=== PATIENT | male | born 1965 | race Caucasian/White ===

== ENCOUNTER 2020-06-14 11:01 | Emergency (ER) | payer OTHER ==
[~2020-06-14] VITALS: Ht 172.7 cm; Wt 68.0 kg
[~2020-06-14 11:01] MED LIST: CIPRO500 MG PO; METRONIDAZOLE500 MG PO
[2020-06-14] MEDS ORDERED: ZESTRIL20 MG PO (11:20)
[2020-06-14] MEDS ORDERED: HYDROCHLOROTHIA25 MG PO (11:20)
[2020-06-14] MEDS ORDERED: NABUMETONE500 MG PO (15:41)
[2020-06-14] MEDS ORDERED: CYCLOBENZAPRINE10 MG PO (15:41)
== END 2020-06-14 18:11 | disposition home or self-care (01) ==
LOC: ER 11:01
DX: R42 Dizziness and giddiness (principal); M54.2 Cervicalgia; I95.89 Other hypotension

== ENCOUNTER 2020-12-07 07:20 | Emergency (ER) | payer OTHER ==
[~2020-12-07] VITALS: Ht 172.7 cm; Wt 65.8 kg
[~2020-12-07 07:20] MED LIST changes: +CYCLOBENZAPRINE10 MG PO; +HYDROCHLOROTHIA25 MG PO; +NABUMETONE500 MG PO; +ZESTRIL20 MG PO
[2020-12-07] MEDS ORDERED: PAXIL40 MG PO (07:30)
[2020-12-07] MEDS ORDERED: NEURIN (07:31)
[2020-12-07] MEDS ORDERED: CYCLOBENZAPRINE10 MG PO (10:57)
[2020-12-07] MEDS ORDERED: KETO10TA2 PO (10:57)
== END 2020-12-07 11:07 | disposition home or self-care (01) ==
LOC: ER 07:20
DX: M25.561 Pain in right knee (principal); M25.551 Pain in right hip

== ENCOUNTER → 2021-03-14 05:56 | Outpatient (CLI) | payer OTHER ==
[~2021-03-14 05:56] MED LIST changes: +KETO10TA2 PO; +NEURIN; +PAXIL40 MG PO
== END | disposition home or self-care (01) ==
LOC: LAB 05:56
PROVIDERS: ATTEND Emergency Medicine Pediatric Emergency Medicine
DX: Z20.828 Contact with and (suspected) exposure to other viral communicable diseases (principal)

== ENCOUNTER 2021-05-03 14:01 | Emergency (ER) | payer OTHER ==
[~2021-05-03] VITALS: Ht 172.7 cm; Wt 68.0 kg
[2021-05-03] MEDS ORDERED: HYDROCHLOROTHIA25 MG PO (14:12)
[2021-05-03] MEDS ORDERED: ENALAPRIL MALEA25 GM MC (14:12)
== END 2021-05-03 16:30 | disposition home or self-care (01) ==
LOC: ER 14:01
DX: S76.011A Strain of muscle, fascia and tendon of right hip, initial encounter (principal); M25.561 Pain in right knee; X58.XXXA Exposure to other specified factors, initial encounter; Y92.89 Other specified places as the place of occurrence of the external cause

== ENCOUNTER 2021-05-19 08:06 | Emergency (ER) | payer OTHER ==
[~2021-05-19] VITALS: Ht 172.7 cm; Wt 68.0 kg
[~2021-05-19 08:06] MED LIST changes: +ENALAPRIL MALEA25 GM MC
[2021-05-19] MEDS ORDERED: KETO10TA2 PO (11:29)
[2021-05-19] MEDS ORDERED: NORFLEX100MG PO (11:29)
== END 2021-05-19 11:49 | disposition home or self-care (01) ==
LOC: ER 08:06
DX: M54.59 Other low back pain (principal)

== ENCOUNTER 2021-05-19 09:15 | Outpatient (CLI) | payer OTHER ==
[2021-05-19] MEDS ORDERED: KETO10TA2 PO (11:29)
[2021-05-19] MEDS ORDERED: NORFLEX100MG PO (11:29)
== END 2021-05-19 09:30 | disposition home or self-care (01) ==
LOC: PPH VACUNA 09:15
PROVIDERS: ATTEND Emergency Medicine Pediatric Emergency Medicine
DX: Z23 Encounter for immunization (principal)

== ENCOUNTER 2021-06-22 09:00 | Outpatient (CLI) | payer OTHER ==
[~2021-06-22 09:00] MED LIST changes: +NORFLEX100MG PO
[2021-08-24] MEDS ORDERED: IBU800 MG PO (21:02)
[2021-08-24] MEDS ORDERED: CYCLOBENZAPRINE10 MG PO (21:02)
== END 2021-06-22 09:30 | disposition home or self-care (01) ==
LOC: PPH VACUNA 09:00
PROVIDERS: ATTEND Emergency Medicine Pediatric Emergency Medicine
DX: Z23 Encounter for immunization (principal)

== ENCOUNTER → 2021-08-24 | Emergency (ER) | payer OTHER ==
[~2021-08-24] VITALS: Ht 172.7 cm; Wt 65.8 kg
[~2021-08-24] MED LIST changes: +IBU800 MG PO
== END | disposition home or self-care (01) ==
LOC: ER 19:31
DX: M13.88 Other specified arthritis, other site (principal); M79.661 Pain in right lower leg

== ENCOUNTER 2021-12-01 16:55 | Outpatient (CLI) | payer OTHER ==
[2021-12-02] MEDS ORDERED: QUETIAPINE FUM100 MG (01:24)
== END 2021-12-01 18:12 | disposition home or self-care (01) ==
LOC: LAB 16:55
PROVIDERS: ATTEND Preventive Medicine Occupational Medicine
DX: U07.1 COVID-19 (principal)

== ENCOUNTER 2021-12-02 01:05 | Emergency (ER) | payer OTHER ==
[~2021-12-02] VITALS: Ht 172.7 cm; Wt 68.0 kg
[2021-12-02] MEDS ORDERED: QUETIAPINE FUM100 MG (01:24)
== END 2021-12-02 04:43 | disposition home or self-care (01) ==
LOC: ER 01:05
DX: J44.1 Chronic obstructive pulmonary disease with (acute) exacerbation (principal); B34.9 Viral infection, unspecified; Z88.6 Allergy status to analgesic agent; I10 Essential (primary) hypertension

== ENCOUNTER 2021-12-06 12:16 | Emergency (ER) | payer OTHER ==
[~2021-12-06] VITALS: Ht 172.7 cm; Wt 65.8 kg
[~2021-12-06 12:16] MED LIST changes: +QUETIAPINE FUM100 MG
== END 2021-12-06 16:46 | disposition home or self-care (01) ==
LOC: ER 12:16
DX: J40 Bronchitis, not specified as acute or chronic (principal); Z88.8 Allergy status to other drugs, medicaments and biological substances; Z20.822 Contact with and (suspected) exposure to COVID-19

== ENCOUNTER → 2022-03-13 | Emergency (ER) | payer OTHER ==
[~2022-03-13] VITALS: Ht 172.7 cm; Wt 65.8 kg
[~2022-03-13] MED LIST changes: +RELAFEN DS1000 MG PO
== END | disposition home or self-care (01) ==
LOC: ER 18:30
DX: S00.83XA Contusion of other part of head, initial encounter (principal); R55 Syncope and collapse; R42 Dizziness and giddiness; W18.30XA Fall on same level, unspecified, initial encounter; Y93.9 Activity, unspecified; Y92.9 Unspecified place or not applicable; Y99.9 Unspecified external cause status

== ENCOUNTER → 2022-04-23 | Emergency (ER) | payer OTHER ==
[~2022-04-23] VITALS: Ht 172.7 cm; Wt 65.8 kg
[~2022-04-23] MED LIST changes: +NABUMETONE750 MG PO
== END | disposition home or self-care (01) ==
LOC: ER 03:15
DX: M54.40 Lumbago with sciatica, unspecified side (principal); E11.9 Type 2 diabetes mellitus without complications; I10 Essential (primary) hypertension; Z88.8 Allergy status to other drugs, medicaments and biological substances

== ENCOUNTER 2022-04-24 01:13 | Emergency (ER) | payer OTHER ==
[~2022-04-24] VITALS: Ht 172.7 cm; Wt 65.8 kg
[~2022-04-24 01:13] MED LIST changes: -NABUMETONE750 MG PO
[2022-04-24] MEDS ORDERED: NABUMETONE750 MG PO (02:16)
== END 2022-04-24 02:53 | disposition home or self-care (01) ==
LOC: ER 01:13
DX: M79.605 Pain in left leg (principal); I10 Essential (primary) hypertension; Z88.8 Allergy status to other drugs, medicaments and biological substances

== ENCOUNTER 2022-04-26 12:46 | Outpatient (CLI) | payer OTHER ==
[~2022-04-26 12:46] MED LIST changes: +NABUMETONE750 MG PO
== END 2022-04-26 12:51 | disposition home or self-care (01) ==
LOC: PPH VACUNA 12:46
PROVIDERS: ATTEND Emergency Medicine Pediatric Emergency Medicine
DX: Z23 Encounter for immunization (principal)

== ENCOUNTER 2022-04-26 13:12 | Outpatient (CLI) | payer OTHER | END 2022-04-26 13:17 | disposition home or self-care (01) | LOC: PPH VACUNA 13:12 | PROVIDERS: ATTEND Emergency Medicine Pediatric Emergency Medicine | DX: Z23 Encounter for immunization (principal) ==

== ENCOUNTER 2022-05-23 11:34 | Emergency (ER) | payer OTHER ==
[~2022-05-23] VITALS: Ht 172.7 cm; Wt 65.8 kg
== END 2022-05-23 17:20 | disposition home or self-care (01) ==
LOC: ER 11:34
DX: B34.9 Viral infection, unspecified (principal); R19.7 Diarrhea, unspecified; I10 Essential (primary) hypertension; E11.9 Type 2 diabetes mellitus without complications; Z20.822 Contact with and (suspected) exposure to COVID-19; Z88.6 Allergy status to analgesic agent

== ENCOUNTER → 2022-07-07 | Emergency (ER) | payer OTHER ==
[~2022-07-07] VITALS: Ht 170.2 cm; Wt 65.8 kg
== END | disposition home or self-care (01) ==
LOC: ER 21:19
DX: S29.9XXA Unspecified injury of thorax, initial encounter (principal); W19.XXXA Unspecified fall, initial encounter; Y93.9 Activity, unspecified; Y92.9 Unspecified place or not applicable

== ENCOUNTER 2022-09-03 18:21 | Emergency (ER) | payer OTHER ==
[~2022-09-03] VITALS: Ht 172.7 cm; Wt 59.0 kg
[2022-09-03] MEDS ORDERED: NABUMETONE750 MG PO (18:43)
== END 2022-09-03 18:55 | disposition home or self-care (01) ==
LOC: ER 18:21
DX: M54.9 Dorsalgia, unspecified (principal); Z88.8 Allergy status to other drugs, medicaments and biological substances

== ENCOUNTER 2022-09-17 18:33 | Emergency (ER) | payer OTHER ==
[~2022-09-17] VITALS: Ht 172.7 cm; Wt 63.5 kg
== END 2022-09-17 19:05 | disposition home or self-care (01) ==
LOC: ER 18:33
DX: M54.9 Dorsalgia, unspecified (principal); Z88.6 Allergy status to analgesic agent

== ENCOUNTER 2022-10-08 19:28 | Emergency (ER) | payer OTHER ==
[~2022-10-08] VITALS: Ht 172.7 cm; Wt 65.8 kg
[2022-10-08] MEDS ORDERED: PREVACID15 M1 PO (19:41)
[2022-10-08] MEDS ORDERED: SINGULAIR4 M1 PO (19:41)
[2022-10-08] MEDS ORDERED: ZESTRIL20 MG PO (19:42)
== END 2022-10-08 21:34 | disposition home or self-care (01) ==
LOC: ER 19:28
DX: J45.909 Unspecified asthma, uncomplicated (principal); Z88.8 Allergy status to other drugs, medicaments and biological substances

== ENCOUNTER 2022-10-19 13:44 | Outpatient (CLI) | payer OTHER ==
[~2022-10-19 13:44] MED LIST changes: +PREVACID15 M1 PO; +SINGULAIR4 M1 PO
== END 2022-10-19 13:52 | disposition home or self-care (01) ==
LOC: MRI 13:44
DX: M54.59 Other low back pain (principal); M54.40 Lumbago with sciatica, unspecified side
CPT/HCPCS: 72148

== ENCOUNTER 2023-01-25 00:48 | Emergency (ER) | payer OTHER ==
[~2023-01-25] VITALS: Ht 172.7 cm; Wt 65.8 kg
== END 2023-01-25 04:03 | disposition home or self-care (01) ==
LOC: ER 00:48
DX: M54.50 Low back pain, unspecified (principal); Z88.8 Allergy status to other drugs, medicaments and biological substances

== ENCOUNTER 2023-01-31 08:16 | Emergency (ER) | payer OTHER ==
[~2023-01-31] VITALS: Ht 172.7 cm; Wt 63.5 kg
[2023-01-31] MEDS ORDERED: NORFLEX100MG PO (09:11)
[2023-01-31] MEDS ORDERED: KETO10TA2 PO (09:11)
== END 2023-01-31 09:37 | disposition home or self-care (01) ==
LOC: ER 08:16
DX: M54.42 Lumbago with sciatica, left side (principal); Z88.6 Allergy status to analgesic agent

== ENCOUNTER 2024-06-10 10:14 | Emergency (ER) | payer OTHER ==
[~2024-06-10] VITALS: Ht 172.7 cm; Wt 59.0 kg
[2024-06-10] MEDS ORDERED: HORIZANT300 MG (11:04)
[2024-06-10] MEDS ORDERED: NABUMETONE500 MG PO (11:05)
[2024-06-10] MEDS ORDERED: ANTIVERT25 M2 PO (11:05)
[2024-06-10] MEDS ORDERED: ADULT LOW DOSE81 M1 (11:06)
[2024-06-10] MEDS ORDERED: FAMOtidine 10 MG/ML (4ML VIAL) IV STA (11:37)
[2024-06-10] MEDS ORDERED: 0.9 % SODIUM CHLORIDE 1,000 ML IV STA (11:38)
[2024-06-10] MEDS ORDERED: ONDANSETRON HCL 2 MG/ML VIAL IV ONE (11:45)
[2024-06-10 12:08] LABS: HEMOGLOBIN 14.2 g/dL (13-16.00); MEAN CORPUSCULAR HGB CONC 35.1 g/dl (32.0-36.0); PLATELET COUNT 286 K/uL (150-450); RED BLOOD COUNT 4.17 M/uL (4.00-6.00); RED CELL DISTRIBUTION WIDTH 13.9 % (11.5-14.5)
[2024-06-10 12:09] LABS: HEMATOCRIT 40.5 % (39.0-48.0)
[2024-06-10 12:38] LABS: CALCIUM 9.6 mg/dL (8.5-10.1); CREATININE SERUM 0.83 mg/dL (0.70-1.30); GFR 94.83; POTASSIUM 3.66 mEq/L (3.5-5.1)
== END 2024-06-10 15:21 | disposition home or self-care (01) ==
LOC: ER 10:16
PROVIDERS: General Practice
DX: R11.10 Vomiting, unspecified (principal); I10 Essential (primary) hypertension; Z88.6 Allergy status to analgesic agent

== ENCOUNTER 2024-06-12 10:41 | Inpatient (IN) | payer OTHER ==
[~2024-06-12] VITALS: Ht 172.7 cm; Wt 129.7 kg
[~2024-06-12 10:41] MED LIST changes: +ADULT LOW DOSE81 M1; +ANTIVERT25 M2 PO; +HORIZANT300 MG
[2024-06-12] MEDS ORDERED: PEPCID AC10 MG PO (11:04)
[2024-06-12] MEDS ORDERED: 0.9 % SODIUM CHLORIDE 1,000 ML IV STA (11:14)
[2024-06-12] MEDS ORDERED: ONDANSETRON HCL 2 MG/ML VIAL IV STA (11:14)
[2024-06-12 12:18] LABS: HEMATOCRIT 37.5 % (39.0-48.0); HEMOGLOBIN 13.8 g/dL (13-16.00); MEAN CELL VOLUME 95.3 fL (80.0-100.00); MEAN CORPUSCULAR HEMOGLOBIN 35.1 pg (27.00-32.0); MEAN CORPUSCULAR HGB CONC 36.8 g/dl (32.0-36.0); PLATELET COUNT 256 K/uL (150-450); RED BLOOD COUNT 3.94 M/uL (4.00-6.00); RED CELL DISTRIBUTION WIDTH 13.8 % (11.5-14.5)
[2024-06-12 12:29] LABS: CALCIUM 9.3 mg/dL (8.5-10.1); CREATININE SERUM 0.85 mg/dL (0.70-1.30); GFR 92.26; POTASSIUM 3.12 mEq/L (3.5-5.1)
[2024-06-12] MEDS ORDERED: FAMOTIDINE/PF 20 MG in 0.9 % SODIUM CHLORIDE 8 ML IV PUSH STA (14:06)
[2024-06-12 14:45] LABS: URINE APPEARANCE Clear; URINE BILIRRUBIN Negative (NEGATIVE); URINE BLOOD Negative; URINE COLOR Yellow; URINE GLUCOSE Negative (NEGATIVE); URINE KETONE 15 (NEGATIVE); URINE LEUKOCYTE Negative; URINE NITRATE Negative; URINE PROTEIN Trace (NEGATIVE)
[2024-06-12 14:46] LABS: URINE BACTERIA 125.8 uL (0.0-1933); URINE EPITHELIAL CELLS 18.5 uL (0.0-38.8); URINE RBC 16.6 uL (0.0-20.8); URINE WBC 10.6 uL (0.0-23.2)
[2024-06-12 15:09] LABS: URINE CAST 0.15 uL (0.0-1.40)
[2024-06-12 15:10] LABS: URINE MUCUS SCANT
[2024-06-12] MEDS ORDERED: POTASSIUM CHLORIDE/D5-0.9%NACL 1,000 ML IV ONE (16:00)
[2024-06-12] MEDS ORDERED: ONDANSETRON HCL 4 MG in 0.9 % SODIUM CHLORIDE 50 ML IV PRN (20:15)
[2024-06-12] MEDS ORDERED: 0.9 % SODIUM CHLORIDE 1,000 ML IV SCH (20:15)
[2024-06-12] MEDS ORDERED: ACETAMINOPHEN 500 MG GEL..CAP PO PRN (20:15)
[2024-06-12] MEDS ORDERED: POTASSIUM CHLORIDE IN 0.9%NACL 1,000 ML IV ONE (20:15)
[2024-06-12] MEDS ORDERED: SUCRALFATE 1 G TABLET PO SCH (20:18)
[2024-06-12] MEDS ORDERED: FAMOTIDINE/PF 20 MG in 0.9 % SODIUM CHLORIDE 8 ML IV PUSH SCH (20:18)
[2024-06-12 21:34] VITALS: BP 138/93; O2SAT 99
[2024-06-12] MEDS ORDERED: QUETIAPINE FUMARATE 100 MG TABLET PO SCH (23:33)
[2024-06-13 00:41] VITALS: BP 127/82; O2SAT 99
[2024-06-13 04:46] LABS: CALCIUM 8.5 mg/dL (8.5-10.1); CREATININE SERUM 0.72 mg/dL (0.70-1.30); GFR 111.73; MAGNESIUM 1.8 mg/dL (1.8-2.4); POTASSIUM 3.76 mEq/L (3.5-5.1)
[2024-06-13 04:54] LABS: INR 1.1; PARTIAL THROMBOPLASTIN TIME 26.1 SECONDS (22.0-34.0); PROTHROMBIN TIME 11.9 SECONDS (9.0-11.5)
[2024-06-13 08:44] VITALS: BP 115/71; O2SAT 98
[2024-06-13] MEDS ORDERED: LISINOPRIL 20 MG TABLET PO SCH (09:00)
[2024-06-13] MEDS ORDERED: GABAPENTIN 300 MG CAPSULE PO SCH (09:00)
== END 2024-06-13 12:26 | disposition home or self-care (01) | DRG 641 ==
LOC: ER 10:43 → MEDJ 21:23
PROVIDERS: Emergency Medicine; General Practice; ADMIT Internal Medicine; ATTEND Internal Medicine
PROC: BW21ZZZ Computerized Tomography (CT Scan) of Abdomen and Pelvis (ICD-10-PCS; principal; 2024-06-12)
DX: E86.0 Dehydration (principal); E87.6 Hypokalemia; E87.1 Hypo-osmolality and hyponatremia; R11.12 Projectile vomiting; Z20.822 Contact with and (suspected) exposure to COVID-19

== ENCOUNTER 2024-08-28 12:19 | Emergency (ER) | payer OTHER ==
[~2024-08-28] VITALS: Ht 172.7 cm; Wt 59.0 kg
[~2024-08-28 12:19] MED LIST changes: +PEPCID AC10 MG PO
[2024-08-28 15:41] VITALS: BP 122/77; O2SAT 98
[2024-08-28] MEDS ORDERED: FAMOTIDINE/PF 20 MG in 0.9 % SODIUM CHLORIDE 8 ML IV PUSH STA (16:25)
[2024-08-28] MEDS ORDERED: ONDANSETRON HCL 2 MG/ML VIAL IV ONE (16:30)
[2024-08-28] MEDS ORDERED: 0.9 % SODIUM CHLORIDE 1,000 ML IV SCH (16:30)
[2024-08-28] MEDS ORDERED: FAMOTIDINE/PF 20 MG/2 ML VIAL ONE (16:44)
[2024-08-28] MEDS ORDERED: ONDANSETRON HCL 2 MG/ML VIAL ONE (16:44)
[2024-08-28 17:05] LABS: HEMATOCRIT 33.1 % (39.0-48.0); HEMOGLOBIN 11.7 g/dL (13-16.00); MEAN CELL VOLUME 99.3 fL (80.0-100.00); MEAN CORPUSCULAR HGB CONC 35.3 g/dl (32.0-36.0); PLATELET COUNT 355 K/uL (150-450); RED BLOOD COUNT 3.34 M/uL (4.00-6.00); RED CELL DISTRIBUTION WIDTH 14.1 % (11.5-14.5)
[2024-08-28 17:28] LABS: ALBUMIN 3.8 gm/dL (3.4-5.0); BILIRUBIN TOTAL 0.56 mg/dL (0.3-1.2); CALCIUM 8.9 mg/dL (8.5-10.1); CREATININE SERUM 1.14 mg/dL (0.70-1.30); GFR 65.52; GLOBULINA 3.9 G/DL (2.4-3.5); TOTAL PROTEIN 7.7 gm/dL (6.4-8.2)
[2024-08-28 17:31] LABS: POTASSIUM 2.73 mEq/L (3.5-5.1)
[2024-08-28] MEDS ORDERED: POTASSIUM BICARBONATE/CIT AC 25 MEQ TABLET.EFF PO ONE (17:45)
[2024-08-28] MEDS ORDERED: POTASSIUM CHLORIDE IN 0.9%NACL 1,000 ML IV ONE (17:51)
[2024-08-28 17:56] LABS: PH,URINE 6.5 (5.0-8.0); URINE APPEARANCE Clear; URINE BILIRRUBIN Negative (NEGATIVE); URINE BLOOD Negative; URINE COLOR Dark Yellow; URINE GLUCOSE Negative (NEGATIVE); URINE KETONE Negative (NEGATIVE); URINE LEUKOCYTE Negative; URINE NITRATE Positive; URINE PROTEIN Negative (NEGATIVE)
[2024-08-28 18:15] LABS: URINE BACTERIA 1.2 uL (0.0-1933); URINE EPITHELIAL CELLS 1.1 uL (0.0-38.8); URINE WBC 0.1 uL (0.0-23.2)
== END 2024-08-28 19:27 | disposition left against medical advice (07) ==
LOC: ER 12:21
PROVIDERS: General Practice
DX: E86.0 Dehydration (principal); R11.2 Nausea with vomiting, unspecified; E87.6 Hypokalemia; E11.9 Type 2 diabetes mellitus without complications; Z79.84 Long term (current) use of oral hypoglycemic drugs; I10 Essential (primary) hypertension; Z88.8 Allergy status to other drugs, medicaments and biological substances; Z20.822 Contact with and (suspected) exposure to COVID-19

== ENCOUNTER 2024-09-08 08:18 | Outpatient (CLI) | payer OTHER | END 2024-09-08 08:21 | disposition home or self-care (01) | LOC: TOM 08:18 | DX: I67.1 Cerebral aneurysm, nonruptured (principal) | CPT/HCPCS: 70496 ==

== ENCOUNTER 2024-09-30 10:20 | Inpatient (IN) | payer OTHER ==
[~2024-09-30] VITALS: Ht 172.7 cm; Wt 59.0 kg
[2024-09-30] MEDS ORDERED: FAMOtidine 10 MG/ML (4ML VIAL) IV ONE (11:45)
[2024-09-30] MEDS ORDERED: ONDANSETRON HCL 2 MG/ML VIAL IV ONE (11:45)
[2024-09-30] MEDS ORDERED: ONDANSETRON HCL 2 MG/ML VIAL ONE (11:50)
[2024-09-30 12:29] LABS: HEMATOCRIT 31.3 % (39.0-48.0); HEMOGLOBIN 10.9 g/dL (13-16.00); MEAN CELL VOLUME 101.3 fL (80.0-100.00); MEAN CORPUSCULAR HEMOGLOBIN 35.1 pg (27.00-32.0); MEAN CORPUSCULAR HGB CONC 34.7 g/dl (32.0-36.0); PLATELET COUNT 294 K/uL (150-450); RED BLOOD COUNT 3.09 M/uL (4.00-6.00); RED CELL DISTRIBUTION WIDTH 13.9 % (11.5-14.5)
[2024-09-30 12:44] LABS: INR 1.06; PARTIAL THROMBOPLASTIN TIME 25.8 SECONDS (22.0-34.0); PROTHROMBIN TIME 11.5 SECONDS (9.0-11.5)
[2024-09-30 13:04] LABS: ALBUMIN 3.9 gm/dL (3.4-5.0); BILIRUBIN TOTAL 0.87 mg/dL (0.3-1.2); CALCIUM 8.8 mg/dL (8.5-10.1); CREATININE SERUM 0.78 mg/dL (0.70-1.30); GFR 101.53; GLOBULINA 3.5 G/DL (2.4-3.5); POTASSIUM 3.46 mEq/L (3.5-5.1); TOTAL PROTEIN 7.4 gm/dL (6.4-8.2)
[2024-09-30 13:40] LABS: URINE APPEARANCE Clear; URINE BILIRRUBIN Small (NEGATIVE); URINE BLOOD Negative; URINE COLOR Dark Yellow; URINE GLUCOSE Negative (NEGATIVE); URINE KETONE Negative (NEGATIVE); URINE LEUKOCYTE Small; URINE NITRATE Positive; URINE PROTEIN Trace (NEGATIVE)
[2024-09-30 13:46] LABS: URINE EPITHELIAL CELLS 18.9 uL (0.0-38.8); URINE RBC 4.1 uL (0.0-20.8); URINE WBC 56.8 uL (0.0-23.2)
[2024-09-30] MEDS ORDERED: ENALAPRIL MALEATE 20 MG TABLET PO SCH (13:50)
[2024-09-30] MEDS ORDERED: FAMOTIDINE/PF 20 MG in 0.9 % SODIUM CHLORIDE 8 ML IV PUSH SCH (13:50)
[2024-09-30] MEDS ORDERED: POTASSIUM CHLORIDE IN WATER 100 ML IV ONE (14:00)
[2024-09-30] MEDS ORDERED: ONDANSETRON HCL 4 MG in 0.9 % SODIUM CHLORIDE 50 ML IV PRN (14:00)
[2024-09-30] MEDS ORDERED: 0.9 % SODIUM CHLORIDE 1,000 ML IV SCH (14:00)
[2024-09-30] MEDS ORDERED: GABAPENTIN 300 MG CAPSULE PO SCH (14:06)
[2024-09-30] MEDS ORDERED: HYDROCHLOROTHIAZIDE 25 MG TABLET PO SCH (14:07)
[2024-09-30] MEDS ORDERED: LOSARTAN POTASSIUM 25 MG TABLET PO SCH (14:07)
[2024-09-30 14:11] LABS: URINE CAST 0.14 uL (0.0-1.40)
[2024-09-30] MEDS ORDERED: CEFTRIAXONE SODIUM 2,000 MG in 0.9 % SODIUM CHLORIDE 100 ML IV SCH (14:19)
[2024-09-30] MEDS ORDERED: ACETAMINOPHEN 325 MG TABLET PO PRN (14:30)
[2024-09-30] MEDS ORDERED: CEFTRIAXONE SODIUM 2,000 MG VIAL ONE (14:34)
[2024-09-30] MEDS ORDERED: FAMOTIDINE/PF 20 MG/2 ML VIAL ONE (14:34)
[2024-09-30 14:48] VITALS: BP 124/69
[2024-09-30] MEDS ORDERED: POTASSIUM CHLORIDE IN WATER 40 MEQ/100 ML PIGGYBAG IV ONE (15:04)
[2024-09-30 15:27] VITALS: BP 119/77; O2SAT 100
[2024-09-30] MEDS ORDERED: ACETAMINOPHEN 325 MG TABLET PO ONE (15:37)
[2024-09-30 17:59] VITALS: BP 119/80; O2SAT 98
[2024-09-30] MEDS ORDERED: ACETAMINOPHEN 500 MG GEL..CAP PO PRN (20:00)
[2024-10-01 01:26] VITALS: BP 106/65
[2024-10-01 05:03] LABS: ALBUMIN 3.5 gm/dL (3.4-5.0); BILIRUBIN TOTAL 0.6 mg/dL (0.3-1.2); CALCIUM 8.9 mg/dL (8.5-10.1); GFR 89.51; GLOBULINA 2.8 G/DL (2.4-3.5); POTASSIUM 3.97 mEq/L (3.5-5.1); TOTAL PROTEIN 6.3 gm/dL (6.4-8.2)
[2024-10-01 05:20] LABS: CREATININE SERUM 0.87 mg/dL (0.70-1.30)
[2024-10-01 09:32] VITALS: BP 108/64; O2SAT 95
== END 2024-10-01 10:16 | disposition home or self-care (01) | DRG 641 ==
LOC: ER 10:23 → SEC-K 14:26 → MEDI 15:10
PROVIDERS: General Practice; ADMIT Student in an Organized Health Care Education/Training Program; ATTEND Student in an Organized Health Care Education/Training Program
PROC: BR20ZZZ Computerized Tomography (CT Scan) of Cervical Spine (ICD-10-PCS; principal; 2024-09-30)
PROC: BW28ZZZ Computerized Tomography (CT Scan) of Head (ICD-10-PCS; 2024-09-30)
PROC: BW21ZZZ Computerized Tomography (CT Scan) of Abdomen and Pelvis (ICD-10-PCS; 2024-09-30)
DX: E86.0 Dehydration (principal); E87.6 Hypokalemia; E87.1 Hypo-osmolality and hyponatremia; R11.2 Nausea with vomiting, unspecified; R53.1 Weakness; R41.82 Altered mental status, unspecified

== ENCOUNTER 2024-12-29 21:45 | Emergency (ER) | payer OTHER ==
[~2024-12-29] VITALS: Ht 172.7 cm; Wt 63.5 kg
[2024-12-29] MEDS ORDERED: GENVOYA TABLET1 EACH PO (21:53)
[2024-12-29] MEDS ORDERED: QUETIAPINE FUM400 M1 PO (21:54)
[2024-12-29] MEDS ORDERED: MEDI-MECLIZINE25 MG PO (21:54)
[2024-12-29] MEDS ORDERED: DIALYVITE TABL1 EACH PO (21:55)
[2024-12-29] MEDS ORDERED: PROAIR RESPICL90 MCG IH (21:56)
[2024-12-29] MEDS ORDERED: AZOR 5-20 MG T1 EACH PO (21:56)
[2024-12-29] MEDS ORDERED: EZALLOR SPRINKL10 MG PO (21:56)
[2024-12-30 00:08] LABS: BASO % 0.4 % (0.1-1.2); EOS # 0.43 (0.04-0.54); EOS % 5.4 % (0.7-7.0); HEMATOCRIT 27.9 % (40.1-51.0); HEMOGLOBIN 9.6 g/dL (13.7-17.5); LYMPH # 3.08 (1.18-3.74); LYMPH % 38.8 % (19.3-53.1); MEAN CORPUSCULAR HEMOGLOBIN 35.3 pg (25.6-32.2); MONO # 0.51 (0.24-0.82); MONO % 6.4 % (4.7-12.5); NEUT # 3.86 (1.56-6.13); NEUT % 48.6 % (34.0-71.1); PLATELET COUNT 273 K/uL (163-369); RED BLOOD COUNT 2.72 M/uL (4.63-6.08); RED CELL DISTRIBUTION WIDTH 12.6 % (11.6-14.4)
[2024-12-30 00:30] LABS: ALBUMIN 3.9 gm/dL (3.4-5.0); BILIRUBIN TOTAL 0.31 mg/dL (0.3-1.2); CALCIUM 8.9 mg/dL (8.5-10.1); CREATININE SERUM 1.7 mg/dL (0.70-1.30); GFR 41.32; GLOBULINA 3.9 G/DL (2.4-3.5); POTASSIUM 4.48 mEq/L (3.5-5.1); TOTAL PROTEIN 7.8 gm/dL (6.4-8.2)
[2024-12-30 01:08] LABS: PH,URINE 5.5 (5.0-8.0); URINE APPEARANCE Clear; URINE BILIRRUBIN Negative (NEGATIVE); URINE BLOOD Negative; URINE COLOR Orange; URINE GLUCOSE Negative (NEGATIVE); URINE KETONE Negative (NEGATIVE); URINE LEUKOCYTE Trace; URINE NITRATE Positive; URINE PROTEIN Trace (NEGATIVE)
[2024-12-30 01:12] LABS: URINE BACTERIA 72.1 uL (0.0-1933); URINE CAST 2.79 uL (0.0-1.40); URINE EPITHELIAL CELLS 12.1 uL (0.0-38.8); URINE RBC 3.2 uL (0.0-20.8); URINE WBC 2.8 uL (0.0-23.2)
== END 2024-12-30 02:05 | disposition home or self-care (01) ==
LOC: ER 21:45
PROVIDERS: Preventive Medicine Public Health & General Preventive Medicine
DX: R42 Dizziness and giddiness (principal); R55 Syncope and collapse; Z88.8 Allergy status to other drugs, medicaments and biological substances; J45.909 Unspecified asthma, uncomplicated; I95.89 Other hypotension; I25.2 Old myocardial infarction; Z86.73 Personal history of transient ischemic attack (TIA), and cerebral infarction without residual deficits; I11.9 Hypertensive heart disease without heart failure; E11.9 Type 2 diabetes mellitus without complications

== ENCOUNTER 2025-02-12 23:06 | Emergency (ER) | payer OTHER ==
[~2025-02-12] VITALS: Ht 172.7 cm; Wt 61.2 kg
[~2025-02-12 23:06] MED LIST changes: +AZOR 5-20 MG T1 EACH PO; +DIALYVITE TABL1 EACH PO; +EZALLOR SPRINKL10 MG PO; +GENVOYA TABLET1 EACH PO; +MEDI-MECLIZINE25 MG PO; +PROAIR RESPICL90 MCG IH; +QUETIAPINE FUM400 M1 PO
[2025-02-13] VITALS: BP 117/72; O2SAT 97
[2025-02-13] MEDS ORDERED: MECLIZINE HCL 25 MG TABLET PO STA (03:02)
== END 2025-02-13 03:43 | disposition home or self-care (01) ==
LOC: ER 23:26
DX: H81.10 Benign paroxysmal vertigo, unspecified ear (principal); Z88.8 Allergy status to other drugs, medicaments and biological substances

== ENCOUNTER 2025-03-16 13:47 | Emergency (ER) | payer OTHER ==
[~2025-03-16] VITALS: Ht 172.7 cm; Wt 61.2 kg
[2025-03-16 14:00] VITALS: BP 72/44; O2SAT 97
[2025-03-16] MEDS ORDERED: 0.9 % SODIUM CHLORIDE 500 ML IV ONE (15:30)
[2025-03-16 15:57] LABS: BASO % 0.1 % (0.1-1.2); EOS # 0.09 (0.04-0.54); EOS % 1.2 % (0.7-7.0); LYMPH # 2.26 (1.18-3.74); LYMPH % 30.7 % (19.3-53.1); MEAN PLATELET VOLUME 10.10 fl (9.4-12.4); MONO # 0.47 (0.24-0.82); MONO % 6.4 % (4.7-12.5); NEUT # 4.49 (1.56-6.13); NEUT % 61.2 % (34.0-71.1); RED CELL DISTRIBUTION WIDTH 12.4 % (11.6-14.4)
[2025-03-16 16:16] LABS: INR 1.03
[2025-03-16 16:20] LABS: COVID-19 AG NEGATIVE (NEGATIVE)
[2025-03-16 16:22] LABS: ALT/SGPT 72.0 U/L (12-78); AST/SGOT 15.0 U/L (15-37); BILIRUBIN TOTAL 0.53 mg/dL (0.3-1.2); BUN CREA RATIO 15.0 (7.0-25.0); CREATININE SERUM 1.37 mg/dL (0.70-1.30); GFR 53.0; GLOBULINA 3.6 G/DL (2.4-3.5); GLUCOSE FASTING 110.0 mg/dL (65-100); OSMOLALITY SERUM 281.0 MOSM/KG (275-295)
[2025-03-16 16:37] LABS: URINE APPEARANCE Clear; URINE BILIRRUBIN Negative (NEGATIVE); URINE BLOOD Negative; URINE COLOR Yellow; URINE GLUCOSE Negative (NEGATIVE); URINE KETONE Negative (NEGATIVE); URINE LEUKOCYTE Negative; URINE NITRATE Negative; URINE PROTEIN Negative (NEGATIVE); URINE UROBILINOGEN 1.0 E.U./dl
[2025-03-16 16:41] LABS: URINE BACTERIA 41.9 uL (0.0-1933); URINE CAST 6.15 uL (0.0-1.40); URINE EPITHELIAL CELLS 23.2 uL (0.0-38.8); URINE RBC 2.7 uL (0.0-20.8); URINE WBC 4.6 uL (0.0-23.2)
[2025-03-16 17:01] LABS: URINE MUCUS SCANT
[2025-03-16 17:02] LABS: TYPE CELLS SQUAMOUS
== END 2025-03-16 19:10 ==
LOC: ER 13:47
PROVIDERS: Emergency Medicine
DX: H81.10 Benign paroxysmal vertigo, unspecified ear (principal); J45.909 Unspecified asthma, uncomplicated; Z86.73 Personal history of transient ischemic attack (TIA), and cerebral infarction without residual deficits; F32.89 Other specified depressive episodes; E78.00 Pure hypercholesterolemia, unspecified; I10 Essential (primary) hypertension; Z21 Asymptomatic human immunodeficiency virus [HIV] infection status; Z98.890 Other specified postprocedural states; Z88.8 Allergy status to other drugs, medicaments and biological substances; Z20.822 Contact with and (suspected) exposure to COVID-19

== ENCOUNTER 2025-06-26 23:01 | Emergency (ER) | payer OTHER ==
[~2025-06-26] VITALS: Ht 167.6 cm; Wt 63.5 kg
[2025-06-26] MEDS ORDERED: DEXAMETHASONE SODIUM PHOSPHATE 4 MG/ML VIAL IM STA (23:44)
[2025-06-26] MEDS ORDERED: ORPHENADRINE CITRATE 30 MG/ML AMPUL IM STA (23:44)
[2025-06-26] MEDS ORDERED: KETOROLAC TROMETHAMINE 15 MG VIAL IM STA (23:44)
[2025-06-27] MEDS ORDERED: KETOROLAC TROMETHAMINE 30 MG VIAL ONE
[2025-06-27] MEDS ORDERED: ORPHENADRINE CITRATE 30 MG/ML AMPUL ONE (00:01)
[2025-06-27] MEDS ORDERED: DEXAMETHASONE SODIUM PHOSPHATE 4 MG/ML VIAL ONE (00:01)
[2025-06-27] MEDS ORDERED: MEDROLPACK PO (00:48)
[2025-06-27] MEDS ORDERED: METAXALONE640 MG PO (00:48)
[2025-06-27] MEDS ORDERED: DICLOFENAC POTA50 MG PO (00:48)
== END 2025-06-27 04:25 | disposition home or self-care (01) ==
LOC: ER 23:01
DX: M54.42 Lumbago with sciatica, left side (principal); I10 Essential (primary) hypertension; Z88.8 Allergy status to other drugs, medicaments and biological substances; M51.369 Other intervertebral disc degeneration, lumbar region without mention of lumbar back pain or lower extremity pain

== ENCOUNTER 2025-07-06 21:25 | Emergency (ER) | payer OTHER ==
[~2025-07-06] VITALS: Ht 172.7 cm; Wt 65.8 kg
[~2025-07-06 21:25] MED LIST changes: +DICLOFENAC POTA50 MG PO; +MEDROLPACK PO; +METAXALONE640 MG PO
[2025-07-06] MEDS ORDERED: ORPHENADRINE CITRATE 30 MG/ML AMPUL IM STA (23:51)
[2025-07-06] MEDS ORDERED: KETOROLAC TROMETHAMINE 30 MG VIAL IM STA (23:51)
[2025-07-06] MEDS ORDERED: DEXAMETHASONE 4 MG TABLET PO STA (23:51)
[2025-07-07 05:38] LABS: ERYTHROCYTE SEDIMENTATION RATE 1 mm/hr (0-20)
[2025-07-07 05:39] LABS: BASO % 0.3 % (0.1-1.2); EOS # 0.16 (0.04-0.54); EOS % 1.4 % (0.7-7.0); LYMPH # 5.69 (1.18-3.74); LYMPH % 48.5 % (19.3-53.1); MEAN PLATELET VOLUME 10.10 fl (9.4-12.4); MONO # 0.70 (0.24-0.82); MONO % 6.0 % (4.7-12.5); NEUT # 4.85 (1.56-6.13); NEUT % 41.3 % (34.0-71.1); RED CELL DISTRIBUTION WIDTH 14.9 % (11.6-14.4)
[2025-07-07 05:43] LABS: INR 0.95
[2025-07-07 05:47] LABS: ALT/SGPT 37 U/L (12-78); AST/SGOT 23 U/L (15-37); BILIRUBIN TOTAL 0.44 mg/dL (0.3-1.2); BUN CREA RATIO 25 (7.0-25.0); CREATININE SERUM 0.80 mg/dL (0.70-1.30); GFR 98.60; GLOBULINA 3.6 G/DL (2.4-3.5); GLUCOSE FASTING 88 mg/dL (65-100); OSMOLALITY SERUM 283 MOSM/KG (275-295)
[2025-07-07 06:06] LABS: URINE APPEARANCE Clear; URINE BILIRRUBIN Negative (NEGATIVE); URINE BLOOD Negative; URINE COLOR Yellow; URINE GLUCOSE Negative (NEGATIVE); URINE KETONE Negative (NEGATIVE); URINE LEUKOCYTE Negative; URINE NITRATE Negative; URINE PROTEIN Negative (NEGATIVE); URINE UROBILINOGEN 1.0 E.U./dl
[2025-07-07 06:10] LABS: URINE BACTERIA 13.1 uL (0.0-1933); URINE EPITHELIAL CELLS 4.4 uL (0.0-38.8); URINE RBC 3.0 uL (0.0-20.8); URINE WBC 2.9 uL (0.0-23.2)
[2025-07-07] MEDS ORDERED: MEDROLPACK PO (06:14)
[2025-07-07] MEDS ORDERED: NORFLEX100MG PO (06:14)
[2025-07-07 06:19] LABS: URINE CAST 0.00 uL (0.0-1.40)
== END 2025-07-07 07:14 | disposition home or self-care (01) ==
LOC: ER 21:26
PROVIDERS: Physician Assistant Medical
DX: M54.89 Other dorsalgia (principal); G89.29 Other chronic pain; R53.1 Weakness; M54.30 Sciatica, unspecified side; Z86.73 Personal history of transient ischemic attack (TIA), and cerebral infarction without residual deficits; Z88.5 Allergy status to narcotic agent

== ENCOUNTER 2025-07-16 12:44 | Emergency (ER) | payer OTHER ==
[~2025-07-16] VITALS: Ht 172.7 cm; Wt 65.8 kg
[2025-07-16] MEDS ORDERED: GRALISE600 MG (13:41)
[2025-07-16] MEDS ORDERED: 0.9 % SODIUM CHLORIDE 1,000 ML IV ONE (14:45)
[2025-07-16] MEDS ORDERED: KETOROLAC TROMETHAMINE 30 MG VIAL ONE (15:29)
[2025-07-16] MEDS ORDERED: KETOROLAC TROMETHAMINE 30 MG VIAL IV ONE (15:30)
[2025-07-16 15:59] LABS: BASO % 0.2 % (0.1-1.2); EOS # 0.12 (0.04-0.54); EOS % 1.1 % (0.7-7.0); LYMPH # 2.54 (1.18-3.74); LYMPH % 22.7 % (19.3-53.1); MEAN PLATELET VOLUME 10.20 fl (9.4-12.4); MONO # 1.04 (0.24-0.82); MONO % 9.3 % (4.7-12.5); NEUT # 7.38 (1.56-6.13); NEUT % 65.9 % (34.0-71.1); RED CELL DISTRIBUTION WIDTH 14.5 % (11.6-14.4)
[2025-07-16 16:10] LABS: INR < 0.93
[2025-07-16 16:16] LABS: ALT/SGPT 27.0 U/L (12-78); AST/SGOT 13.0 U/L (15-37); BILIRUBIN TOTAL 0.59 mg/dL (0.3-1.2); BUN CREA RATIO 12.0 (7.0-25.0); CREATININE SERUM 1.29 mg/dL (0.70-1.30); GFR 56.81; GLOBULINA 4.0 G/DL (2.4-3.5); GLUCOSE FASTING 107.0 mg/dL (65-100); OSMOLALITY SERUM 281.0 MOSM/KG (275-295)
[2025-07-16] MEDS ORDERED: PEPCID AC20 MG PO (16:32)
[2025-07-16] MEDS ORDERED: AZITHROMYCIN500 MG PO (16:32)
[2025-07-16] MEDS ORDERED: NEURONTIN300 MG PO (16:33)
== END 2025-07-16 16:48 | disposition home or self-care (01) ==
LOC: ER 12:45
PROVIDERS: General Practice
DX: R51.9 Headache, unspecified (principal); Z88.8 Allergy status to other drugs, medicaments and biological substances; Z86.73 Personal history of transient ischemic attack (TIA), and cerebral infarction without residual deficits; I10 Essential (primary) hypertension; E11.9 Type 2 diabetes mellitus without complications; Z98.890 Other specified postprocedural states

== ENCOUNTER 2025-07-27 11:25 | Emergency (ER) | payer OTHER ==
[~2025-07-27] VITALS: Ht 172.7 cm; Wt 68.0 kg
[~2025-07-27 11:25] MED LIST changes: +AZITHROMYCIN500 MG PO; +GRALISE600 MG; +NEURONTIN300 MG PO; +PEPCID AC20 MG PO
[2025-07-27] MEDS ORDERED: KETOROLAC TROMETHAMINE 60 MG VIAL IM ONE ×2 (13:00→13:12)
[2025-07-27] MEDS ORDERED: DEXAMETHASONE SODIUM PHOSPHATE 4 MG/ML VIAL IM ONE (13:00)
[2025-07-27] MEDS ORDERED: DEXAMETHASONE SODIUM PHOSPHATE 4 MG/ML VIAL ONE (13:12)
[2025-07-27 13:27] VITALS: BP 134/86; O2SAT 98
== END 2025-07-27 13:29 | disposition home or self-care (01) ==
LOC: ER 11:26
DX: M54.16 Radiculopathy, lumbar region (principal); I10 Essential (primary) hypertension; E11.9 Type 2 diabetes mellitus without complications; J45.909 Unspecified asthma, uncomplicated; K29.70 Gastritis, unspecified, without bleeding; Z88.8 Allergy status to other drugs, medicaments and biological substances